=== PATIENT | male | born 1975 | race Caucasian/White ===

== ENCOUNTER → 2016-10-18 | Outpatient (REF) | payer BC ==
[~2016-10-18] MED LIST: AMOX500T2 PO; ATOR40TA2 PO; COLC1TAB PO; ETOD400T PO; HYDR-3702 PO; LISI5TAB14 PO; METF850T2 PO; NAPR550T PO; OMEP20CA6 PO; SULF1TAB35 PO
[2016-10-18 11:34] LABS: MEAN CORPUSCULAR VOLUME 88 FL (80-100); MEAN PLATELET VOLUME 10.3 FL (6.0-9.5); PLATELET COUNT 184 10^3uL (150-450); WHITE BLOOD COUNT 5.11 10^3uL (4.0-11.0)
[2016-10-18 11:35] LABS: BILIRUBIN,URINE Negative (Negative); CLARITY,URINE Clear; COLOR,URINE Yellow; GLUCOSE, URINE (UA) 2+ (Negative); LEUKOCYTE ESTERASE, URINE Negative (Negative); PH,URINE 5.5 (5.0 - 8.0); UROBILINOGEN,URINE 0.2 mg/dL (0.2-1.0)
[2016-10-18 11:49] LABS: MEAN CORPUSCULAR HGB CONC 36.3 g/dL (31.0-37.0)
[2016-10-18 11:55] LABS: ALBUMIN 4.6 g/dL (3.4-5.0); ANION GAP 17.8 MEQ/L (3-15); CALCULATED IONIZED CALCIUM 4.2 mg/dL (3.8-4.6); TOTAL PROTEIN 7.6 g/dL (6.4-8.5)
[2016-10-18 12:02] LABS: BAND NEUTROPHILS % 2 % (0-6); EOSINOPHILS % 1 % (0-4); LYMPHOCYTES # 1.1 #; MONOCYTES # 0.9 #; MONOCYTES % 17 % (3-11); SEGMENTED NEUTROPHILS % 58 % (51-67); TOTAL CELLS COUNTED 100
[2016-10-18 12:03] LABS: RBC MORPH NORMAL (NORMAL)
== END ==
LOC: LAB 11:16
PROVIDERS: ATTEND Nurse Practitioner Family
DX: E11.9 Type 2 diabetes mellitus without complications (principal)
CPT/HCPCS: 80053; 80061; 81003; 82043; 83036; 85025